=== PATIENT | female | born 1975 | race Two or more races ===

== ENCOUNTER → 2017-02-15 | Outpatient (CLI) | payer BC ==
[2017-02-15 15:50] LABS: Basophils # (auto) 0 uL; Basophils % (auto) 0.6 % (0.0-2.0); DEFINITIVE VIEW TRANSMISSION; Eosinophils # (auto) 0.1 uL; Hematocrit 37.5 % (36.0-46.0); Lymphocytes # (auto) 1.9 uL; Lymphocytes % (auto) 32.7 % (10.0-50.0); Mean Corpuscular Hemoglobin 25.8 pg (28.0-32.0); Mean Corpuscular Hgb Conc. 32.1 g/dL (32.0-36.0); Mean Corpuscular Volume 80.5 fL (80.0-100.0); Mean Platelet Volume 9.1 fL (7.4-10.4); Monocytes # (auto) 0.4 uL; Monocytes % (auto) 6.9 % (0.0-12.0); Neutrophils # (auto) 3.5 uL; Neutrophils % (auto) 58.8 % (37.0-80.0); Platelet Count (auto) 389 10^3/uL (140-450); Red Cell Distribution Width 16.3 % (11.6-16.0); White Blood Cell 5.9 10^3/uL (4.4-10.8)
== END | disposition home or self-care (01) ==
LOC: LAB 15:29
PROVIDERS: ATTEND Internal Medicine
DX: D64.9 Anemia, unspecified (principal)
CPT/HCPCS: 36415; 83540; 85025

== ENCOUNTER 2025-09-14 22:06 | Emergency (ER) | payer BC, OTHER ==
[~2025-09-14] VITALS: Ht 165.1 cm; Wt 55.2 kg
[2025-09-14 22:13] VITALS: BP 165/93; PULSE 85; RESP 18; TEMP 98.6; O2SAT 100
[2025-09-15 00:31] LABS: Urine Protein, UAD Negative (Negative)
--- NOTE | 2025-09-15 00:52 | ED.PDOC ---
General HPI Comments PT CAME TO THE ER WITH CC OF " SOMETHING SMALL AND WHITE COMING OUT WHEN SHE URINATED" PT IS A&OX4 RR EVEN AND REGULAR NO DISTRESS NOTED. Denies any vaginal discharge, itchiness, or UTI complaints. Chief Complaint: Urinary Time Seen by MD: 22:25 Primary Care Provider: SERGIO Forrester notes: Nurses Notes, Medications, Allergies Allergies: Coded Allergies: NO KNOWN ALLERGIES (Unverified , 05/18/14) Information Source: Patient Mode of Arrival: Ambulatory Past Medical History PAST MEDICAL HISTORY: Denies Surgical History: BTL HUMAN RESOURCES COMPENSATION ANALYST History: No Pertinent HUMAN RESOURCES COMPENSATION ANALYST History Family History Family History: Unobtainable Social History Smoker: Non-Smoker Alcohol: Denies ETOH Use Drugs: Denies Drug Use Lives In: Home All Other Systems: Reviewed and Negative (See HPI) Physical Exam General Appearance: No Apparent Distress, Normal HEENT: Pharynx Normal Neck: Full Range of Motion, Non-Tender Respiratory: Lungs Clear, No Respiratory Distress, Normal Breath Sounds Cardiovascular: No Murmur, Normal Peripheral Pulses, Regular Rate/Rhythm Breast Exam: Deferred Gastrointestinal: No Organomegaly, Non Tender, No Pulsatile Mass, Normal Bowel Sounds, Soft, Other (Negative CVA tenderness) Genitalia: Deferred Pelvic: Deferred Rectal: Deferred Extremities: Normal range of motion, No pedal edema Musculoskeletal : Apperance: Normal Neurologic: Alert, No Motor Deficits, Normal Affect, Normal Mood, No Sensory Deficits Cerebellar Function: Normal Reflexes: NOT DONE Skin: Dry, Normal Color, Warm Lymphatic: No Adenopathy Was a procedure done? Was a procedure done?: No Differential Diagnosis Kidney stone (Female): Pyelonephritis, Urinary obstruction Urinary Problem (Female): PID, UTI, Vaginitis X-Ray, Labs, Meds, VS Vital Signs Date Time Temp Pulse Resp B/P (MAP) Pulse Ox O2 Delivery O2 Flow Rate FiO2 09/14/25 22:19 Room Air 09/14/25 22:13 98.6 85 18 165/93 100 98.6 Lab Test 09/14/25 23:59 Range/Units Urine Color Colorless Yellow Urine Clarity Clear Clear Urine pH 6.0 5.0-9.0 Urine Specific Taylor 1.005 1.001-1.035 Urine Protein Negative Negative Urine Ketones Negative Negative Urine Blood Negative Negative /uL Urine Nitrite Negative Negative Urine Bilirubin Negative Negative Urine Urobilinogen Normal Negative mg/dL Urine Leukocyte Esterase Negative Negative /uL Urine RBC <1 0 - 4 /hpf Urine Microscopic WBC 1 0-5 /HPF Urine Squamous Epithelial Cells Few <5 /hpf Urine Bacteria None seen None Seen /hpf Urine Glucose Normal Normal mg/dL Current Medications Medications (Trade) Dose Ordered Sig/Mark Route Start Time Stop Time Status Last Admin Fluconazole (Diflucan Tablet) 200 mg ONCE ONCE PO 09/15/25 01:00 09/15/25 01:01 DC 09/15/25 01:00 X-Ray, Labs, Meds, VS Comment UA within normal limits. This is likely vaginal yeast. Patient given trial of fluconazole x1. Patient states has not appointment for follow up with your PCP on the . Advised to symptoms continue recommend pelvic exam. Advised on ER return precautions patient indicates understanding and agrees with discharge plan of care. Time of 1ST Reevaluation: 22:25 Reevaluation 1ST: Unchanged Time of 2ND Reevaluation: 00:50 Reevaluation 2ND: Improved Patient Education/Counseling: Diagnosis, Treatment, Need For Follow Up Family Education/Counseling: No Family Present SEPSIS Sepsis Screen Date sepsis recognized/suspect: Sep 14, 2025 Time Sepsis recognized/suspect: 2214 Recent Procedure: No On Antibiotic Therapy: No Respiratory Rate >20: No Heart Rate >90: No Temp<36 C (96.8 F) or >38.3 C: No SBP <90 or MAP <65 mmHG: No New Acute Mental Status Change: No Is the patient on CPAP, BIPAP,: No Vital Signs Date Time Temp Pulse Resp B/P (MAP) Pulse Ox O2 Delivery O2 Flow Rate FiO2 09/14/25 22:19 Room Air 09/14/25 22:13 98.6 85 18 165/93 100 98.6 Medications Medications Dose Ordered Sig/Mark Route Start Time Stop Time Status Last Admin Dose Admin Fluconazole 200 mg ONCE ONCE PO 09/15/25 01:00 09/15/25 01:01 DC 09/15/25 01:00 Departure 1 Departure Time of Disposition: 00:51 Impression: Primary Impression: Yeast infection Disposition: 01 HOME / SELF CARE / HOMELESS Condition: Stable Discharged With: Self Critical Care Note Critical Care Time?: No Stability Stability form required: NATALY Guerrero Sep 15, 2025 00:51
[2025-09-15] MEDS: FLUCONAZOLE 100 MG TAB PO ONE (01:00)
== END 2025-09-15 01:02 | disposition home or self-care (01) ==
LOC: ER 22:06
DX: B37.9 Candidiasis, unspecified (principal); Z98.51 Tubal ligation status
CPT/HCPCS: 81001